=== PATIENT | female | born 2000 | race Hispanic/Latino ===

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

== ENCOUNTER 2022-05-03 14:48 | Emergency (ER) | payer OTHER ==
--- NOTE | 2022-05-03 16:24 | RAD REPORT ---
EXAM DESCRIPTION: RAD - Hand Right 3 View - 05/03/2022 4:15 pm CLINICAL HISTORY: Right hand pain status post injury FINDINGS: Oblique minimally displaced fracture proximal aspect of the fourth distal phalanx extends into the articular surface. Minimally displaced fracture distal aspect fourth middle phalanx with angulation present at the fract ure site. No dislocation
[2022-05-03] MEDS ORDERED: LIDOCAINE 2% MPF 5 ML VIAL ONE (16:30)
[2022-05-03] MEDS ORDERED: BUPIVACAINE 0.5% PF 10 ML VIAL ONE (16:30)
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
[2022-05-03 18:33] VITALS: TEMP 98.7; O2SAT 100
[2022-05-03 18:36] VITALS: BP 119/81
== END 2022-05-03 18:14 | disposition home or self-care (01) ==
LOC: ER 14:48
PROC: 2W3JX1Z Immobilization of Right Finger using Splint (ICD-10-PCS; principal; 2022-05-03)
DX: S62.634A Displaced fracture of distal phalanx of right ring finger, initial encounter for closed fracture (principal); S62.624A Displaced fracture of middle phalanx of right ring finger, initial encounter for closed fracture
CPT/HCPCS: 73130; 64450; 99284; 29130; J2001